=== PATIENT | female | born 1940 | race Caucasian/White ===

== ENCOUNTER 2017-04-13 11:14 | Emergency (ER) | payer MEDICARE ==
[~2017-04-13] VITALS: Ht 167.6 cm; Wt 75.0 kg
[~2017-04-13 11:14] MED LIST: CEPH250C PO; LISI-571 PO; OXYC-474 PO
[2017-04-13 11:16] VITALS: BP 111/52; PULSE 65; RESP 22; O2SAT 99
--- NOTE | 2017-04-13 11:23 | ED.REPORT ---
HPI-Chest Pain 40 and Over Date of Service Apr 13, 2017 ED Provider: Luis Phan MD Patient is a 76 year old female with a history of CAD and hypertension who presents to the ED complaining of mid-sternal chest pain onset 1 hour ago. Associated symptoms include a brief episode of pain that radiated into her jaw, lasting less than a minute and mild dyspnea. She denies radiating back pain, extremity pain, nausea, diaphoresis, vomiting, diarrhea, cough or feeling sick over the past few days. The patient describes the pain as achy and reports that it started while driving. Prior to arrival the patient took 325mg of ASA. She states that the pain feels similar to her previous DC. Patient is a former smoker and is not on anticoagulants. Nursing Notes Stated Complaint: CHEST PAIN Chief Complaint: Chest Pain Nursing Notes Reviewed: Yes Allergies: Coded Allergies: Penicillins (Verified Allergy, Mild, Hives, 07/13/16) Sulfa (Sulfonamide Antibiotics) (Verified Allergy, Mild, HIVES, 07/13/16) codeine (Verified Allergy, Mild, Hives, 07/13/16) Scheduled Cephalexin (Cephalexin) 250 Mg Capsule 250 MG PO QID Lisinopril (Lisinopril) 5 Mg Tablet 5 MG PO BID Scheduled PRN Oxycodone (Roxicodone) 5 Mg Tablet 5 MG PO Q6H PRN PRN For Pain General Time Seen by MD: 11:22 Chief Complaint Chest aching Hx Obtained From: Patient Arrived By: Walk-in Sudden in Onset?: Yes Onset Occurred: 1 - 4 hours ago Symptom Duration: Since onset Location: : Substernal Quality: Aching, Painful Radiation: : Jaw Migration/Movement: Reports: None Severity: Current: Moderate Recent Healthcare: Recent doctor visit Similar Sx Previous: Yes Risk Factors HEART Score HEART for MACE: High index of susp (2), Normal ECG (0), Age 65 or over (2), 1- 2 CAD risk factors (1), < or = to NL troponin (0) HEART for MACE Score: 4-7 (mod risk 12%-16.6%) Well's Criteria for PE Well's PE Score: 0-2 pts (low risk 3.6%) Past Medical History Past Medical History Fibromyalgia DC Reports: Coronary artery disease, Hypertension Past Surgical History Right shoulder open rotator cuff repair and acromioplasty Cardiac stent placement Breast hemorroids back/neck Reports: Appendectomy Smoking History Former Smoker Social History Other Social History: Good social support, Local resident Ambulatory Status Independent Review of Systems Respiratory: Reports: Shortness of breath, Denies: Non-productive cough Cardiovascular: Reports: Chest pain GI: Denies: Nausea, Vomiting Musculoskeletal: Reports: Neck pain, Denies: Back pain, Extremity pain Skin: Denies Diaphoresis Complete sys rev & neg: except as marked. Physical Exam Initial Vital Signs Vital Signs (First) Date Time Temp Pulse Resp B/P Pulse Ox O2 Delivery O2 Flow Rate FiO2 04/13/17 11:16 36.6 65 22 111/52 99 Room Air Initial VS: Reviewed General/Constitutional: Awake, Alert, No acute distress Respiratory / Chest: Atraumatic, Breath sounds NL, Breath sounds = bilat, No respiratory distress, No chest tenderness Cardiovascular: Heart rate NL, Regular rhythm, Heart sounds NL Abdomen: Atraumatic, Soft, Non-tender Lower Extremity / Pelvis / MS: Atraumatic, No edema Skin: Atraumatic, Color NL, No rash, Warm, Dry Neurologic: Oriented X3, Speech NL Head / Eyes: Atraumatic, Normocephalic Interpretation & Diagnostics Lab Results Interpretation Result Diagram: 04/13/17 1130 04/13/17 1250 Test 04/13/17 11:30 04/13/17 12:50 White Blood Count 7.9th/mm3 (3.8-10.1) Red Blood Count 4.49mil/mm3 (3.90-5.20) Hemoglobin 13.1g/dL (12.0-15.6) Hematocrit 40.1% (35.0-46.0) Mean Corpuscular Volume 89.3fL (81-100) Mean Corpuscular Hemoglobin 29.2pg (27.0-35.0) Mean Corpuscular Hemoglobin Concent 32.7% (32.0-37.0) Red Cell Distribution Width 13.0% (12.3-15.4) Platelet Count 258bil/L (150-400) Neutrophils (%) (Auto) 59.3% (40-74) Lymphocytes (%) (Auto) 33.5% (14-46) Monocytes (%) (Auto) 5.2% (4-12) Eosinophils (%) (Auto) 1.3% (0-5) Basophils (%) (Auto) 0.4% (0-3) D-Dimer < 0.50mg/L FEU (<0.50) Sodium Level 139mEq/L (134-144) Potassium Level 4.4mEq/L (3.5-5.2) Chloride Level 104mEq/L (97-108) Carbon Dioxide Level 23mmol/L (18-29) Blood Urea Nitrogen 23mg/dL (8-27) Creatinine 0.89mg/dL (0.57-1.00) Estimat Glomerular Filtration Rate 88mL/min (>59) Glucose Level 125mg/dL (60-99) Calcium Level 8.9mg/dL (8.5-10.1) Magnesium Level 2.2mg/dL (1.6-2.6) Total Bilirubin 0.3mg/dL (0.0-1.2) Aspartate Amino Transf (AST/SGOT) 18U/L (0-50) Alanine Aminotransferase (ALT/SGPT) 11U/L (0-32) Alkaline Phosphatase 69U/L (25-165) Troponin T 0.010ug/L (0.0-0.011) Total Protein 6.5g/dL (6.4-8.4) Albumin 4.0g/dL (3.4-5.0) ECG Interpretation ECG Interpretation: atrial premature complexes probable left ventricular hypertrophy no acute ischemic changes Time: 11:28 Interpreted by: ED physician Normal ECG Interpretation: Normal rate (63), Normal sinus rhythm X-Ray Chest Interpretation Chest Xray Interpretation: IMPRESSION: No acute pulmonary process. Dictated by: Shamika Castorena M.D. on 04/13/2017 at 12:08 Approved by: Shamika Castorena M.D. on 04/13/2017 at 12:08 Interpretation / Wet Read by: Interpret - Radiologist Re-Eval/Medical Decision Time of Eval: 11:33 Re-Evaluation/Progress Note: Discussed EKG results and plan for admit for chest pain rule out. Patient understands and agrees to plan. All questions were addressed. Time of Eval: 12:27 Patient Status: Condition improved Re-Evaluation/Progress Note: Patient is now requesting to leave. Discussed plan to wait at least until all labs are back and that she will be leaving AMA. Patient understands the risks. All questions were addressed. Counseled Regarding: Diagnosis, Lab results, Need for follow-up, When/why to return to ED Discharge & Departure Primary Impression: Chest pain Chest pain type: unspecified Qualified Code: R07.9 - Chest pain, unspecified Disposition: AGAINST MEDICAL ADVICE Discharge Condition All VS Reviewed: Yes Condition: Stable Patient Instructions: Chest Pain (ED) Additional Instructions: Your tests have been relatively reassuring, however given your underlying history of CAD and these symptoms being similar to your previous DC, we can not definitively tell you that you are safe from having a heart attack in the next few hours or days, so you are leaving against medical advice. Follow up with your primary care physician or return to the ED for further evaluation at any time, even if symptoms have resolved. Referrals: Eladio Cho MD (PCP) Scribe Attestation Portions of this note were transcribed by Denisse Hopper. I, Dr. Phan personally performed the history, physical exam and medical decision-making; I reviewed and confirmed the accuracy of the information in the transcribed note. Signed by: Sonu Corbin, 04/13/17 copies to: Eladio Cho MD, Kirk H MD Apr 13, 2017 11:23 Nell Hopper Apr 13, 2017 11:32
[2017-04-13] MEDS ORDERED: Ondansetron 2 mg/mL 2 mL Inj IVPUSH ONE (11:55)
[2017-04-13 12:05] LABS: BASOPHILS % (AUTO) 0.4 % (0-3); EOSINOPHILS % (AUTO) 1.3 % (0-5); MONOCYTES % (AUTO) 5.2 % (4-12); Mean Corpuscular Hemoglobin 29.2 pg (27.0-35.0); Mean Corpuscular Volume 89.3 fL (81-100); NEUTROPHILS % (AUTO) 59.3 % (40-74); Platelet Count 258 bil/L (150-400)
--- NOTE | 2017-04-13 12:14 | DRSVH ---
PROCEDURE: X-RAY CHEST, TWO VIEWS ([id number]) INDICATIONS: CHEST PAIN TECHNIQUE: 2 views of the chest were acquired. COMPARISON: [facility], [place], XR CHEST 2VW, 01/24/2016, 11:07. [facility], C R, CHEST 2VW, 11/03/2014, 11:57. FINDINGS: Surgical changes and devices: Cervical fixation plate and right breast implant is noted. Lungs and pleura: No pleural effusions or pneumothorax. Lungs are clear. Mediastinum: Mediastinal contours are normal. Heart size is normal. Bones and chest wall: No suspicious bony abnormalities. Soft tissues appear unremarkable. IMPRESSION: No acute pulmonary process. Dictated by: Shamika Castorena M.D. on 04/13/2017 at 12:08 Approved by: Shamika Castorena M.D. on 04/13/2017 at 12:08
[2017-04-13 12:15] VITALS: BP 121/62; PULSE 59; RESP 22; O2SAT 99
[2017-04-13 12:59] VITALS: BP 121/62; PULSE 59; RESP 22; O2SAT 99
[2017-04-13 13:08] LABS: TROPONIN T 0.01 ug/L (0.0-0.011)
[2017-04-13 13:19] LABS: Magnesium 2.2 mg/dL (1.6-2.6)
== END 2017-04-13 13:00 | disposition left against medical advice (07) ==
LOC: SED 11:14
DX: R07.9 Chest pain, unspecified (principal); I10 Essential (primary) hypertension; I25.10 Atherosclerotic heart disease of native coronary artery without angina pectoris; I25.2 Old myocardial infarction; Z87.891 Personal history of nicotine dependence; Z88.0 Allergy status to penicillin; Z88.2 Allergy status to sulfonamides; Z88.5 Allergy status to narcotic agent